=== PATIENT | male | born 1950 | race Caucasian/White ===

== ENCOUNTER 2020-02-24 14:45 | Inpatient (IN) | payer OTHER, MEDICAID, SELFPAY ==
[~2020-02-24] VITALS: Ht 167.6 cm; Wt 83.5 kg
--- NOTE | 2020-02-24 14:45 | NUR ---
PT MIHIR FARNSWORTH TO ER BED 09 Addendum: 02/24/20 at 1500 by MEDWB PT MIHIR FARNSWORTH TO ER BED 09. RN EVALUATING AT BEDSIDE.
[2020-02-24 14:50] VITALS: BP 115/74
[2020-02-24] MEDS ORDERED: ACETAMINOPHEN 650 MG SUPP RC ONE ×2 (14:55→16:15)
--- NOTE | 2020-02-24 15:00 | NUR ---
Note undone in EDM - 02/24/20 at 1610 by MEDSS1 BIBA ALS W C/O FEVER, SOB & ALOC STARTING TODAY. PER EMS, PT O2 SAT WAS 85-88% ON RA AT THE FACILITY. PER EMS, PT BASELINE IS CONFUSED AND FOLLOWS SIMPLE INSTRUCTIONS. TEMP AT THIS TIME 100.4, HR ELEVATED AT 125BPM, PT ON 15L NRB AT 95%. GCS 4/15 (2,1,1). LUNG SOUNDS DIMINISHED IN BILAT BASES. RESPIRATIONS EVEN, SHALLOW AND LABORED. PT PLACED ON BEDSIDE CARPENTRY PROFESSIONAL, BED IN LOW POSITION, SIDE RAIL UP X1
--- NOTE | 2020-02-24 15:00 | NUR ---
BIBA ALS W C/O FEVER, SOB & ALOC STARTING TODAY. PER EMS, PT O2 SAT WAS 85-88% ON RA AT THE FACILITY. PER EMS, PT BASELINE IS CONFUSED AND FOLLOWS SIMPLE INSTRUCTIONS. TEMP AT THIS TIME 100.4, HR ELEVATED AT 125BPM, PT ON 15L NRB AT 95%. GCS 4/15 (2,1,1). LUNG SOUNDS DIMINISHED IN BILAT BASES. RESPIRATIONS EVEN, SHALLOW AND LABORED. PT PLACED ON BEDSIDE APPARATUS LINEMAN, BED IN LOW POSITION, SIDE RAIL UP X2 FOR PATIENT SAFTEY
--- NOTE | 2020-02-24 15:05 | NUR ---
DR. CHU AT BEDSIDE EVALUATING PT
[2020-02-24 15:46] LABS: HEMOGLOBIN 18.2 g/dL (12.0-18.0); MEAN CORPUSCULAR HEMOGLOBIN 29 pg (27-31); MEAN CORPUSCULAR HGB CONC 32 g/dL (33-37); MEAN CORPUSCULAR VOLUME 90.3 fL (80-94); PLATELET COUNT (AUTO) 202 K/uL (140-450); RED CELL DISTRIBUTION WIDTH 14.6 % (11.6-13.7); WHITE BLOOD COUNT (AUTO) 22.2 K/uL (4.8-10.8)
[2020-02-24 16:02] LABS: ALBUMIN 3.2 g/dL (3.4-5.0); ANION GAP 21.4 (8-16); CARBON DIOXIDE 19.2 mmol/L (21-32); CREATININE 1.5 mg/dL (0.6-1.3); POTASSIUM 3.6 mmol/L (3.5-5.1); TOTAL BILIRUBIN 1.3 mg/dL (0.0-1.0)
[2020-02-24 16:05] LABS: LYMPHOCYTES % (MANUAL) 4 % (20-46); MONOCYTES % (MANUAL) 9 % (5-12)
--- NOTE | 2020-02-24 16:10 | NUR ---
Note undone in EDM - 02/24/20 at 1611 by MEDSS1 DAMIENA ALS W C/O FEVER, SOB & ALOC STARTING TODAY. PER EMS, PT O2 SAT WAS 85-88% ON RA AT THE FACILITY. PER EMS, PT BASELINE IS CONFUSED AND FOLLOWS SIMPLE INSTRUCTIONS. TEMP AT THIS TIME 100.4, HR ELEVATED AT 125BPM, PT ON 15L NRB AT 95%. GCS 4/15 (2,1,1). LUNG SOUNDS DIMINISHED IN BILAT BASES. RESPIRATIONS EVEN, SHALLOW AND LABORED. PT PLACED ON BEDSIDE WORD PROCESSOR TECHNICIAN, BED IN LOW POSITION, SIDE RAIL UP X2 FOR PATIENT SAFTEY
[2020-02-24 16:18] LABS: PROTHROMBIN TIME 10.9 secs (10.8-13.4)
[2020-02-24 16:26] LABS: C-REACTIVE PROTEIN QUANT 7.5 mg/dL (0.0-0.9)
[2020-02-24 16:32] LABS: LACTATE DEHYDROGENASE 219 U/L (85-227)
--- NOTE | 2020-02-24 16:35 | NUR ---
TROPONIN 0.120-- CRITICAL VALUE RECEIVED FROM LAB. DR CHU MADE AWARE
[2020-02-24] MEDS ORDERED: NACL 0.9% 1,000 ML IV ONE (16:40)
[2020-02-24] MEDS ORDERED: ASPIRIN 600 MG SUPP RC ONE (16:40)
[2020-02-24] MEDS ORDERED: PIPERACILLIN/TAZOBACTAM 3.375 GM in DEXTROSE 5% 50 ML IV ONE (16:40)
[2020-02-24 17:12] LABS: APPEARANCE,URINE CLEAR (CLEAR); BILIRUBIN,URINE NEGATIVE (NEGATIVE); BLOOD, URINE 1+ (NEGATIVE); COLOR,URINE YELLOW (YELLOW); LEUKOCYTE ESTERASE ,URINE NEGATIVE (NEGATIVE); NITRITE, URINE NEGATIVE (NEGATIVE); UGLUCOSE NEGATIVE (NEGATIVE)
[2020-02-24] MEDS ORDERED: PIPERACILLIN/TAZOBACTAM 3.375 GM VIAL IV ONE (17:33)
[2020-02-24 17:48] LABS: FINE GRANULAR CASTS,URINE 0-10 /LPF (None Seen)
[2020-02-24 17:49] LABS: RED BLOOD CELL CASTS,URINE 0-10 /LPF (None Seen)
[2020-02-24 17:50] LABS: URINE AMORPHOUS URATE 1+ /HPF (None Seen)
--- NOTE | 2020-02-24 18:15 | NUR ---
LACTIC ACID 3.2-- CRITICAL VALUE RECEIVED FROM LAB. DR CHU MADE AWARE
--- NOTE | 2020-02-24 18:20 | NUR ---
PT RESTING IN BED, VSS. NO NEW NEEDS AT THIS TIME
[2020-02-24] MEDS ORDERED: ACETAMINOPHEN 325 MG TAB PO PRN (18:50)
[2020-02-24] MEDS ORDERED: ALBUTEROL HFA MDI 90 MCG/ACTUATION 8 GM INH PRN ×2 (18:50→21:30)
[2020-02-24] MEDS ORDERED: DEXAMETHASONE 10 MG/ML VIAL IVP ONE (18:50)
[2020-02-24] MEDS ORDERED: ONDANSETRON 4 MG/2 ML VIAL IVP PRN (18:50)
[2020-02-24] MEDS ORDERED: BENZONATATE 100 MG CAPLF PO PRN (18:50)
[2020-02-24 19:26] LABS: RSV NEGATIVE (NEGATIVE)
[2020-02-24] MEDS ORDERED: MEMA10TA PO (19:28)
[2020-02-24] MEDS ORDERED: LEVE750T25 PO (19:28)
[2020-02-24] MEDS ORDERED: SYN.05 PO ×2 (19:28→20:12)
[2020-02-24] MEDS ORDERED: MULT-2173 PO (19:28)
[2020-02-24] MEDS ORDERED: DONE10TA10 PO (19:28)
[2020-02-24 20:01] LABS: FREE T4 (FREE THYROXINE) 1.29 ng/dL (0.76-1.46); MAGNESIUM 2.3 mg/dL (1.8-2.4); PHOSPHORUS 2.4 mg/dL (2.5-4.9); THYROID STIMULATING HORMONE 2.06 uIU/mL (0.34-3.74)
[2020-02-24] MEDS ORDERED: MEMA5TAB PO (20:12)
[2020-02-24] MEDS ORDERED: FER300L PO (20:12)
[2020-02-24] MEDS ORDERED: LEVE750T3 PO (20:12)
[2020-02-24] MEDS: DOCUSATE SODIUM 100 MG GELCAP PO SCH (21:00)
[2020-02-24] MEDS: ENOXAPARIN 100 MG/ML SYR SUBQ SCH (21:00)
[2020-02-24] MEDS: guaiFENesin 600 MG TABER PO SCH (21:00)
[2020-02-24] MEDS ORDERED: LOVENOX 1MG/KG Q12H SUBQ SCH (21:00)
[2020-02-24] MEDS ORDERED: DEXAMETHASONE 10 MG/ML VIAL ONE (21:09)
[2020-02-24] MEDS ORDERED: INSULIN LISPRO SLIDING SCALE 100 UNITS/ML VIAL SUBQ PRN (21:30)
[2020-02-24] MEDS ORDERED: DEXTROSE 50% 50 ML SYR IVP PRN (21:30)
--- NOTE | 2020-02-24 21:42 | NUR ---
PT ARRIVED FROM ER TO [facility] VIA GURNEY. RECEIVED BEDSIDE REPORT FROM ER NURSE. PT IS LETHARGIC AND NOT ANSWERING QUESTIONS. PT IS RESPONSIVE TO MILD PAIN. RESPIRATIONS ARE EVEN AND UNLABORED, ON O2 15LPM/NRM. SKIN IS WARM, DRY, AND INTACT. ABDOMEN IS SOFT AND NON-TENDER. PT HAS ESCALONA CATHETER ON. IV ACCESS NOTED ON R HAND G 24 AND RIGHT FOREARM PATENT AND INTACT. IVF INFUSING WELL AT 150CC/HR ORDERED. PT TRANSFERRED SAFELY TO BED. CHANGED TO HOSPITAL GOWN. VITAL SIGNS TAKEN. PT AFEBRILE AND HAS STABLE VS. MRSA SWAB COLLECTED. PT ORIENTED TO ROOM AND POC DISCUSSED. REINFORCEMENT NEEDED. PT KEPT COMFORTABLE. SAFETY MEASURES IN PLACE. CALL LIGHT WITHIN REACH WILL CONTINUE TO MONITOR.
--- NOTE | 2020-02-24 21:45 | NUR ---
PT ADMITTED TO THE CARE OF DR GARDINER. ADMITTED TO TELE 130. REPORT GIVEN TO APRIL PATEL
--- NOTE | 2020-02-24 22:00 | NUR ---
LOVENOX AND DECADRON ALREADY GIVEN BY ER NURSE. COLACE AND MUCINEX NOT GIVEN AND WASTED (KAMALA RN WITNESS) DUE TO PATIENT CANNOT DRINK MEDICINE DUE TO BEING LETHARGIC. WILL CONTINUE TO MONITOR.
[2020-02-24] MEDS: NACL 0.9% 1,000 ML IV SCH (22:16)
[2020-02-24 22:42] VITALS: BP 118/84
[2020-02-25] MEDS ORDERED: ALBUTEROL HFA MDI 90 MCG/ACTUATION 8 GM INH SCH
[2020-02-25] MEDS ORDERED: PIPERACILLIN/TAZOBACTAM 3.375 GM VIAL IV ONE ×2 (00:59→05:01)
[2020-02-25] MEDS: PIPERACILLIN/TAZOBACTAM 3.375 GM in DEXTROSE 5% 50 ML IV SCH ×4 (01:00→17:46)
--- NOTE | 2020-02-25 01:01 | NUR ---
VS STABLE. SCHEDULED MEDICATION GIVEN. PT ASLEEP BUT RESPONDS TO MILD PAIN. O2 IN PLACE. SAFETY MEASURES IN PLACE. WILL CONTINUE TO MONITOR.
--- NOTE | 2020-02-25 02:22 | NUR ---
PT ASLEEP. RESPIRATIONS EVEN AND UNLABORED. O2 IN PLACE. O2 SAT 93%. PT NOT IN DISTRESS. SAFETY MEASURES IN PLACE. WILL CONTINUE TO MONITOR.
[2020-02-25] MEDS: NACL 0.9% 1,000 ML IV SCH ×2 (02:23→10:27)
[2020-02-25 04:00] VITALS: BP 115/78
--- NOTE | 2020-02-25 04:11 | NUR ---
O2 SAT RANGING FROM 87-90%. RT AND MD AWARE. O2 IN PLACE. RESPIRATIONS EVEN AND UNLABORED. PT STILL LETHARGIC BUT RESPONSIVE TO MILD PAIN. SAFETY MEASURES IN PLACE. WILL CONTINUE TO MONITOR.
[2020-02-25 06:00] LABS: HEMATOCRIT 49.6 % (36-52); HEMOGLOBIN 16.1 g/dL (12.0-18.0); MEAN CORPUSCULAR HEMOGLOBIN 29 pg (27-31); MEAN CORPUSCULAR HGB CONC 32 g/dL (33-37); MEAN CORPUSCULAR VOLUME 90.8 fL (80-94); PLATELET COUNT (AUTO) 171 K/uL (140-450); RED BLOOD CELL COUNT(AUTO) 5.46 MIL/uL (4.20-6.10); RED CELL DISTRIBUTION WIDTH 14.4 % (11.6-13.7)
[2020-02-25] MEDS: BLOOD GLUCOSE MONITORING 1 DEV DEV FS SCH ×4 (06:12→21:30)
[2020-02-25 06:58] LABS: LYMPHOCYTES % (MANUAL) 10 % (20-46); MONOCYTES % (MANUAL) 6 % (5-12); WHITE BLOOD COUNT (AUTO) 27.1 K/uL (4.8-10.8)
--- NOTE | 2020-02-25 07:05 | NUR ---
PATIENT HAS BEEN SCREENED AND CATEGORIZED MODERATE NUTRITION RISK. PATIENT WILL BE SEEN WITHIN 3-5 DAYS OF ADMISSION. 02/27/20 02/29/[address]
[2020-02-25 07:08] LABS: ALBUMIN 2.6 g/dL (3.4-5.0); ANION GAP 18.9 (8-16); ASPARTATE AMINOTRANSFERASE 34 U/L (15-37); CARBON DIOXIDE 19.5 mmol/L (21-32); CHLORIDE 122 mmol/L (98-107); CHOL/HDL RATIO 3.3 (1-4.5); CREATININE 1.4 mg/dL (0.6-1.3); GFR ARICAN-AMERICAN 65 mL/min (>90); GLUCOSE 147 mg/dL (74-106); HDL CHOLESTEROL 46 mg/dL (40-60); LACTATE DEHYDROGENASE 188 U/L (85-227); LDL (CALC) 95 mg/dL (60-100); PHOSPHORUS 2.3 mg/dL (2.5-4.9); POTASSIUM 3.4 mmol/L (3.5-5.1); TOTAL BILIRUBIN 1.6 mg/dL (0.0-1.0); TRIGLYCERIDES 51 mg/dL (30-150); UREA NITROGEN, BLOOD 31 mg/dL (7-18)
--- NOTE | 2020-02-25 07:11 | NUR ---
ENDORSED TO DAY SHIFT NURSE FOR CONTINUITY OF CARE. PATIENT IN STABLE CONDITION.
--- NOTE | 2020-02-25 07:12 | NUR ---
RECEIVED REPORT FROM NIGHT NURSE. PATIENT IS IN STABLE CONDITION. PER REPORT PATIENT WAS DESATING BELOW 90%. PATIENT WAS PLACED ON O2 NON REBREATHER 15L AND NC 5L BY RT. PT NOTED AT 90-91% AT THIS TIME. PATIENT NON LABORED. PATIENT ASLEEP, ABLE TO WAKE BY TOUCH. AOX1. SKIN WARM AND DRY TO TOUCH. IV INTACT AND PATENT TO RIGHT HAND AND RIGHT FOREARM. IVF INFUSING AT 150ML/HR. ESCALONA CATHETER IN PLACE. PLANS OF CARED DISCUSSED. FALL RISK PREVENTION IN PLACE. CALL LIGHT WITHIN REACH.
--- NOTE | 2020-02-25 07:33 | NUR ---
PT NOT IN ANY DISTRESS AT THIS TIME. NO ACCESSORY MUSCLE USE. PT ON NRB SPO2 90%. AND ALSO BEDSIDE EVALUATING PT. WILL CONTINUE TO MONITOR.
[2020-02-25 08:00] VITALS: BP 147/86
[2020-02-25] MEDS: DOCUSATE SODIUM 100 MG GELCAP PO SCH ×2 (09:00→20:26)
[2020-02-25] MEDS: ASCORBIC ACID 500 MG TAB PO SCH (09:00)
[2020-02-25] MEDS: ZINC SULF 220 MG CAP PO SCH (09:00)
[2020-02-25] MEDS: guaiFENesin 600 MG TABER PO SCH ×2 (09:00→20:27)
[2020-02-25] MEDS: VITAMIN D 400 IU TAB PO SCH (09:00)
--- NOTE | 2020-02-25 09:00 | NUR ---
PATIENT UNABLE TO TOLERATE PO MEDICATION. PATIENT IS LETHARGIC. NON REBREATHER MASK IN PLACE @15L. O2 SAT 93%. WILL CONTINUE TO MONITOR.
[2020-02-25 09:19] LABS: SODIUM SERUM 157 mmol/L (136-145)
[2020-02-25] MEDS ORDERED: CRUSHER, PILL MC ONE (09:55)
[2020-02-25] MEDS: ENOXAPARIN 100 MG/ML SYR SUBQ SCH ×2 (10:19→20:28)
--- NOTE | 2020-02-25 10:37 | NUR ---
ELECTRICIAN OFFICE NOTE: Patient's Orientation Unable To Assess Information Provided By ROXIE TATE Comments SW WAS UNABLE TO MEET PATIENT AT BEDSIDE DUE TO MEDICAL CONDITION. Assembler Finger Buffs, Realtionship and Phone Number ROXIE RODRIGUEZ [phone] Healthcare Power of Transition Social Worker No Does Patient Have a POLST No Identifying Problems No Social Work Triggers Is A Social Work Consult Needed No Mandate Report Filed No Explanation Of Identifying Problems PATIENT IS A 70-YEAR-OLD MALE ADMITTED FOR SEPSIS, PNA, AND COVID R/O. PATIENT HAS PMHX OF DIABETES. Admitted From Intermediate Facility Intermediate Facility [facility] [phone] Pre-Admission Level Of Functioning Status Total Care Prior Resources/Services Used In Last 12 Months SNF Long Term Care Prior DME Wheelchair Patient Had Caregiver No Home Support No Caregiver Issues Financial Issues No Known Financial Issue Referral To The Financial Counselor Needed No Factors/Needs SNF/NH Placement Explanation And Or Other Factors Affecting/Possible DC Needs PATIENT IS PENITENTIARY AND ON A BED HOLD. Pt/Rep Participated In Discharge Plan Yes Patient/Family Agress With Discharge Plan Yes Discharge Plan Comments TENTATIVE DISCHARGE PLAN IS FOR PATIENT TO RETURN TO [facility]. DC Plan Status Initiated
[2020-02-25 12:00] VITALS: BP 123/77
--- NOTE | 2020-02-25 12:00 | NUR ---
PATIENT IS IN BED, RESPIRATIONS EVEN AND UNLABORED. NON REBREATHER MASK IN PLACE. NO DISTRESS NOTED AT THIS TIME.
[2020-02-25] MEDS: NACL 0.45% 1,000 ML IV SCH ×2 (13:58→21:05)
--- NOTE | 2020-02-25 14:00 | NUR ---
PATIENT STARTING TO BE MORE AWAKE, MUMBLING. PATIENT REFUSED LUNCH. O2 SAT 100%. NON REBREATHER MASK IN PLACE. WILL CONTINUE TO MONITOR.
[2020-02-25 16:00] VITALS: BP 124/74
--- NOTE | 2020-02-25 17:00 | NUR ---
PATIENT IS TOLERATING NON REBREATHER MASK. PATIENT AWAKE, MAKES GROANS. PATIENT ABLE TO TOLERATE JELLO. PATIENT IS COMFORTABLE WITH O2 SAT 98%
--- NOTE | 2020-02-25 18:51 | NUR ---
PATIENT STABLE. WILL ENDORSE TO NIGHT NURSE FOR CONTINUITY OF CARE.
--- NOTE | 2020-02-25 19:25 | NUR ---
RECEIVED PATIENT FOR CONTINUITY OF CARE. PATIENT IS IN STABLE CONDITION. A/O X 1, 02 15L VIA NONREBREATHER, 02 4L VIA NC, PATIENT IS SATURATING AT 99%. SKIN INTACT. RIGHT FOREARM IV 20G INTACT AND PATENT. RIGHT HAND IV 24G INTACT AND PATENT. ACTIVE BOWEL SOUNDS X 4, ESCALONA CATHETER IN PLACE. SAFETY PRECAUTIONS IN PLACE. WILL CONTINUE TO MONITOR.
[2020-02-25 20:00] VITALS: BP 126/77
[2020-02-25] MEDS ORDERED: guaiFENesin 600 MG TABER PO ONE (20:09)
--- NOTE | 2020-02-25 20:38 | NUR ---
MADE ROUND ON PATIENT. HELD PO MEDS DUE TO PATIENT NOT OPENING MOUTH, POSING SWALLOWING CONTRAINDICATION.
--- NOTE | 2020-02-25 22:00 | NUR ---
PATIENT CONTINUES IN STABLE CONDITION. CONTINUES ON 02 15L VIA NONREBREATHER WITH O2SAT 100%. CALL LIGHT WITHIN REACH. SAFETY PRECAUTIONS IN PLACE. ISOLATION PRECAUTIONS OBSERVED BY ALL STAFF.
[2020-02-26] VITALS: BP 132/90
--- NOTE | 2020-02-26 | NUR ---
MADE ROUNDS. NO S/S ACUTE DISTRESS. FLACC 0. CALL LIGHT WITHIN REACH. SAFETY PRECAUTIONS IN PLACE. ISOLATION PRECAUTIONS OBSERVED BY ALL STAFF.
--- NOTE | 2020-02-26 01:15 | NUR ---
DUE MEDS GIVEN ORDERED. PATIENT IN STABLE CONDITION. FLACC 0. NO S/S ACUTE DISTRESS. CALL LIGHT WITHIN REACH. SAFETY PRECAUTIONS IN PLACE. ISOLATION PRECAUTIONS OBSERVED BY ALL STAFF.
[2020-02-26 04:00] VITALS: BP 140/87
--- NOTE | 2020-02-26 04:30 | NUR ---
INCONTINENT CARE RENDERED WITH FIREPERSON AT BEDSIDE. FLACC 0. NO S/S ACUTE DISTRESS. CALL LIGHT WITHIN REACH. SAFETY PRECAUTIONS IN PLACE. ISOLATION PRECAUTIONS OBSERVED BY ALL STAFF.
[2020-02-26] MEDS: NACL 0.45% 1,000 ML IV SCH (05:25)
[2020-02-26] MEDS: PIPERACILLIN/TAZOBACTAM 3.375 GM in DEXTROSE 5% 50 ML IV SCH ×6 (06:06→23:36)
[2020-02-26 06:13] LABS: BASOPHILS % (AUTO) 0.1 % (0.0-2.0); HEMATOCRIT 48.6 % (36-52); HEMOGLOBIN 15.5 g/dL (12.0-18.0); LYMPHOCYTES # (AUTO) 2.5 K/uL (2.0-11.5); LYMPHOCYTES % (AUTO) 10.7 % (20.5-51.1); MEAN CORPUSCULAR HEMOGLOBIN 29 pg (27-31); MEAN CORPUSCULAR HGB CONC 32 g/dL (33-37); MEAN CORPUSCULAR VOLUME 92.1 fL (80-94); MONOCYTES % (AUTO) 4.5 % (1.7-9.3); NEUTROPHILS # (AUTO) 19.5 K/uL (1.8-7.7); NEUTROPHILS % (AUTO) 84.7 % (42.2-75.2); PLATELET COUNT (AUTO) 154 K/uL (140-450); RED BLOOD CELL COUNT(AUTO) 5.28 MIL/uL (4.20-6.10); RED CELL DISTRIBUTION WIDTH 14.7 % (11.6-13.7); WHITE BLOOD COUNT (AUTO) 23.1 K/uL (4.8-10.8)
[2020-02-26 06:18] LABS: ANION GAP 16.6 (8-16); CARBON DIOXIDE 22.9 mmol/L (21-32); CREATININE 1.4 mg/dL (0.6-1.3); POTASSIUM 3.5 mmol/L (3.5-5.1)
--- NOTE | 2020-02-26 07:26 | NUR ---
RECEIVED REPORT FROM MISSILE TRACKING TECHNICIAN RN FOR CONTINUITY OF CARE. PT IS AAOX1, UNABLE TO MAKE NEEDS KNOWN. PT ON 15L NON REBREATHER AND 4L NC SATING 98%. PT SKIN IS INTACT. PT BEDBOUND, NEEDS Q2H REPOSITIONING. PT HAS RIGHT FA 20G AND R HAND 24G. BOTH IVS PATENT AND INTACT. UNABLE TO DISCUSS POC WITH PT DUE TO MENTAL STATUS. ALL SAFETY MEASURES IN PLACE. WILL ROUND FREQUENTLY ON PT THROUGHOUT THE SHIFT.
[2020-02-26 08:00] VITALS: BP 130/76
[2020-02-26] MEDS: BLOOD GLUCOSE MONITORING 1 DEV DEV FS SCH ×4 (08:03→21:07)
[2020-02-26] MEDS: ZINC SULF 220 MG CAP PO SCH (09:00)
[2020-02-26] MEDS: guaiFENesin 600 MG TABER PO SCH ×2 (09:00→21:22)
[2020-02-26] MEDS: VITAMIN D 400 IU TAB PO SCH (09:00)
[2020-02-26] MEDS: ASCORBIC ACID 500 MG TAB PO SCH (09:00)
[2020-02-26] MEDS: DOCUSATE SODIUM 100 MG GELCAP PO SCH ×2 (09:00→21:22)
--- NOTE | 2020-02-26 09:41 | NUR ---
PT REFUSING TO TAKE MEDICATING AT THIS TIME. I ATTEMPTED A SWALLOW EVAL ON PT BUT HE REFUSED TO TAKE ANYTHING INTO HIS MOUTH. MADE AWARE. NO ORDERS RECEIVED A T THIS TIME. PT STABLE. ALL NEEDS CURRENTLY MET.
[2020-02-26] MEDS: ENOXAPARIN 100 MG/ML SYR SUBQ SCH ×2 (09:58→21:23)
--- NOTE | 2020-02-26 11:21 | NUR ---
PT ASLEEP. ALL NEEDS MET.
[2020-02-26 12:00] VITALS: BP 121/71
--- NOTE | 2020-02-26 13:42 | NUR ---
PT RESTING IN BED. ALL NEEDS MET. NO SIGNS OF DISTRESS AT THIS TIME. WILL CONTINUE TO ROUND FREQUENTLY ON PT.
[2020-02-26] MEDS: DEXTROSE 5% 1,000 ML IV SCH ×2 (13:45→23:36)
[2020-02-26] MEDS ORDERED: NACL 0.9% 500 ML IV ONE (13:45)
--- NOTE | 2020-02-26 15:14 | NUR ---
PT ASLEEP. WILL CONTINUE TO ROUND FREQUENTLY .
[2020-02-26 16:00] VITALS: BP 124/64
--- NOTE | 2020-02-26 19:25 | NUR ---
RECEIVED CONTINUITY OF CARE FROM AM NURSE. PATIENT IS IN STABLE CONDITION. A/O X 0, AROUSABLE TO SHAKING. SKIN IS WARM, DRY, INTACT. TELE MONITOR IN PLACED. 15L 02 VIA NONREBREATHER AND 4L [address] NC [address]. BOTH IV SITES ARE PATENT AND INTACT. ESCALONA CATHETER IN PLACE. ABD IS SOFT AND ROUND. SAFETY PRECAUTIONS IN PLACE. CALL LIGHT WITHIN REACH. ISOLATION PRECAUTION IN PLACE. WILL CONTINUE TO MONITOR.
--- NOTE | 2020-02-26 19:36 | NUR ---
ENDORSED TO POLE SANDER OPERATOR FOR CONTINUITY OF CARE. PT IN STABLE CONDITION AT THIS TIME.
[2020-02-26 20:00] VITALS: BP 129/65
--- NOTE | 2020-02-26 21:15 | NUR ---
MADE ROUND ON PATIENT. ADMINISTERED ROUTINE MEDICATION. PATIENT TOLERATED IT. CALL LIGHT WITHIN REACH. SAFETY PRECAUTIONS IN PLACE. WILL CONTINUE TO MONITOR.
--- NOTE | 2020-02-26 23:20 | NUR ---
CHECKED ON PATIENT. PATIENT IS ASLEEP. NO S/S OF DISTRESS NOTED. SAFETY PRECAUTION IN PLACE. CALL LIGHT WITHIN REACH. WILL CONTINUE TO MONITOR.
[2020-02-27] VITALS: BP 147/87
--- NOTE | 2020-02-27 01:25 | NUR ---
PATIENT AWAKE AND RESTING COMFORTABLY IN BED. FLACC 0. NO S/S ACUTE DISTRESS. CALL LIGHT WITHIN REACH. SAFETY PRECAUTIONS IN PLACE. ISOLATION PRECAUTIONS OBSERVED BY ALL STAFF.
--- NOTE | 2020-02-27 03:15 | NUR ---
PATIENT MORE RESPONSIVE AND WITHDRAWS WITH STIMULI. NO S/S ACUTE DISTRESS. FLACC 0. CALL LIGHT WITHIN REACH. SAFETY PRECAUTIONS IN PLACE. ISOLATION PRECAUTIONS OBSERVED BY ALL STAFF.
[2020-02-27 04:00] VITALS: BP 127/77
[2020-02-27] MEDS: PIPERACILLIN/TAZOBACTAM 3.375 GM in DEXTROSE 5% 50 ML IV SCH ×3 (05:03→17:58)
--- NOTE | 2020-02-27 05:47 | NUR ---
PATIENT ASLEEP AND RESTING COMFORTABLY. ATTEMPTED TO TITRATE OXYGEN DOWN BUT PATIENT DESATURATED FROM 100% TO 88%. PATIENT CONTINUES ON O2 15L VIA NONREBREATHER. CALL LIGHT WITHIN REACH. SAFETY PRECAUTIONS IN PLACE. ISOLATION PRECAUTIONS OBSERVED BY ALL STAFF.
[2020-02-27] MEDS: BLOOD GLUCOSE MONITORING 1 DEV DEV FS SCH ×4 (05:56→21:43)
[2020-02-27 05:57] LABS: BASOPHILS % (AUTO) 0.3 % (0.0-2.0); EOSINOPHILS # (AUTO) 0.1 K/uL (0-0.4); HEMATOCRIT 43.8 % (36-52); LYMPHOCYTES # (AUTO) 2.8 K/uL (2.0-11.5); LYMPHOCYTES % (AUTO) 18.5 % (20.5-51.1); MEAN CORPUSCULAR HEMOGLOBIN 30 pg (27-31); MEAN CORPUSCULAR HGB CONC 32 g/dL (33-37); MEAN CORPUSCULAR VOLUME 92.2 fL (80-94); MONOCYTES # (AUTO) 0.9 K/uL (0.8-1.0); MONOCYTES % (AUTO) 5.7 % (1.7-9.3); NEUTROPHILS # (AUTO) 11.3 K/uL (1.8-7.7); NEUTROPHILS % (AUTO) 74.5 % (42.2-75.2); PLATELET COUNT (AUTO) 124 K/uL (140-450); RED BLOOD CELL COUNT(AUTO) 4.76 MIL/uL (4.20-6.10); RED CELL DISTRIBUTION WIDTH 14.5 % (11.6-13.7); WHITE BLOOD COUNT (AUTO) 15.1 K/uL (4.8-10.8)
[2020-02-27 06:32] LABS: ANION GAP 11.1 (8-16); CREATININE 1.3 mg/dL (0.6-1.3); POTASSIUM 3.1 mmol/L (3.5-5.1)
--- NOTE | 2020-02-27 07:19 | NUR ---
RECEIVED REPORT FROM GAMBLING SUPERVISOR RN FOR CONTINUITY OF CARE FROM YESTERDAY DAY SHIFT. PT IN STABLE CONDITION AT THIS TIME. WILL ROUND FREQUENTLY ON PT THROUGHOUT THE SHIFT.
[2020-02-27 08:00] VITALS: BP 112/68
[2020-02-27] MEDS: DOCUSATE SODIUM 100 MG GELCAP PO SCH ×2 (09:00→21:20)
[2020-02-27] MEDS: guaiFENesin 600 MG TABER PO SCH ×2 (09:00→21:20)
[2020-02-27] MEDS: ZINC SULF 220 MG CAP PO SCH (09:00)
[2020-02-27] MEDS: ENOXAPARIN 100 MG/ML SYR SUBQ SCH ×2 (09:00→21:23)
[2020-02-27] MEDS: ASCORBIC ACID 500 MG TAB PO SCH (09:00)
[2020-02-27] MEDS: VITAMIN D 400 IU TAB PO SCH (09:00)
--- NOTE | 2020-02-27 09:28 | NUR ---
ADMINISTERED MORNING MEDS TO PT. PT TOLERATED WELL. ALL NEEDS MET. WILL CONTINUE TO ROUND FREQUENTLY ON PT.
[2020-02-27] MEDS: DEXTROSE 5% 1,000 ML IV SCH ×2 (09:45→17:58)
--- NOTE | 2020-02-27 11:40 | NUR ---
PT RESTING IN BE. ALL NEEDS MET. WILL CONTINUE TO ROUND FREQUENTLY ON PT.
[2020-02-27] MEDS ORDERED: POTASSIUM CHLORIDE 40 MEQ, LIDOCAINE MPF 1% 25 MG in NACL 0.9% 250 ML IV SCH ×2 (11:45→13:00)
[2020-02-27 12:00] VITALS: BP 114/71
--- NOTE | 2020-02-27 13:13 | NUR ---
PT RESTING IN BED. ALL NEEDS MET. WILL CONTINUE TO ROUND FREQUENTLY ON PT.
--- NOTE | 2020-02-27 15:26 | NUR ---
PT SLEEPING. ALL NEEDS MET. WILL CONTINUE TO ROUND FREQUENTLY ON PT.
[2020-02-27 16:00] VITALS: BP 107/60
--- NOTE | 2020-02-27 19:02 | NUR ---
will endorse pt to pre kindergarten teacher for continuity of care. Pt in sable condition at this time.
--- NOTE | 2020-02-27 19:03 | NUR ---
RECD. RESTING IN BED, AWAKE, A/0X1,CONFUSED, RESPIRATION EVEN AND UNLABORED. MUMBLES. ON 02 AT 2 L N/C BUT ALWAYS TAKES IT OFF, 02 SATURATION - 96%. IV OF D52 AT 100 ML/HR INFUSING RIGHT HAND G24. SAFETY MEASURES ENFORCED, SIDE RAILS WITH PADS, BED ON ALARM. REORIENTED TO HOSPITAL SETTING, PLAN OF CARE DISCUSSED. NEEDS REINFORCEMENT. NO APPEARANCE OF PAIN NOTED, FLACC - 0.
[2020-02-27 20:00] VITALS: BP 126/71
--- NOTE | 2020-02-27 21:20 | NUR ---
DUE PO MEDICATIONS CRUSHED AND GIVEN WITH APPLE SAUCE. NO SIGN AND SYMPTOMS OF ASPIRATION NOTED.
--- NOTE | 2020-02-27 21:30 | NUR ---
INFORMED RT ZANE THAT PATIENT NEED SPECIMEN FOR SPUTUM CULTURE, NEED TO INDUCE PATIENT, PATIENT IS ALREADY X2 NEGATIVE FOR COVID.
[2020-02-28] VITALS: BP 113/51
--- NOTE | 2020-02-28 | NUR ---
APPRENTICE TECHNICIAN BOBBIE NOTED HR DROPPED DOWN TO 39 BUT WENT UP AGAIN TO 40s. PATIENT IN BED, ASYMPTOMATIC.
[2020-02-28] MEDS: PIPERACILLIN/TAZOBACTAM 3.375 GM in DEXTROSE 5% 50 ML IV SCH ×4 (00:40→18:13)
[2020-02-28 04:00] VITALS: BP 133/91
--- NOTE | 2020-02-28 04:00 | NUR ---
ALWAYS TAKING OFF 02 CANNULA, 02 SAT ON ROOM AIR IS 94-96%. DECREASED 02 3 LITERS VIA N/C.
[2020-02-28] MEDS: DEXTROSE 5% 1,000 ML IV SCH ×2 (06:08→15:48)
[2020-02-28 06:17] LABS: BASOPHILS % (AUTO) 0.2 % (0.0-2.0); EOSINOPHILS # (AUTO) 0.1 K/uL (0-0.4); EOSINOPHILS % (AUTO) 0.9 % (0.0-4.0); HEMATOCRIT 40.6 % (36-52); HEMOGLOBIN 13.1 g/dL (12.0-18.0); LYMPHOCYTES # (AUTO) 2.2 K/uL (2.0-11.5); LYMPHOCYTES % (AUTO) 19.6 % (20.5-51.1); MEAN CORPUSCULAR HEMOGLOBIN 29 pg (27-31); MEAN CORPUSCULAR HGB CONC 32 g/dL (33-37); MEAN CORPUSCULAR VOLUME 90.9 fL (80-94); MONOCYTES # (AUTO) 0.7 K/uL (0.8-1.0); MONOCYTES % (AUTO) 5.9 % (1.7-9.3); NEUTROPHILS # (AUTO) 8.2 K/uL (1.8-7.7); NEUTROPHILS % (AUTO) 73.4 % (42.2-75.2); PLATELET COUNT (AUTO) 144 K/uL (140-450); RED BLOOD CELL COUNT(AUTO) 4.47 MIL/uL (4.20-6.10); WHITE BLOOD COUNT (AUTO) 11.1 K/uL (4.8-10.8)
[2020-02-28 06:39] LABS: ANION GAP 12.5 (8-16); CARBON DIOXIDE 25.8 mmol/L (21-32); POTASSIUM 3.3 mmol/L (3.5-5.1)
--- NOTE | 2020-02-28 07:00 | NUR ---
CONDITION REMAIN STABLE. WILL ENDORSE TO AM SHIFT NURSE FOR CONTINUITY OF CARE.
--- NOTE | 2020-02-28 07:05 | NUR ---
RECEIVED BEDSIDE REPORT FROM NIGHTSHIFT NURSE. PT RESTING IN BED. ABLE TO MAKE NEEDS KNOWN.RESPIRATIONS EVEN AND UNLABORED WITH NO SOB OR RESPIRATORY DISTRESS. SKIN WARM AND DRY TO TOUCH. IV SITE IN LFA 22G IS CLEAN, DRY, AND INTACT. SAFETY MEASURES IN PLACE. WILL CONTINUE TO MONITOR
[2020-02-28] MEDS: BLOOD GLUCOSE MONITORING 1 DEV DEV FS SCH ×4 (07:55→21:00)
[2020-02-28 08:00] VITALS: BP 95/44
[2020-02-28] MEDS: guaiFENesin 600 MG TABER PO SCH ×2 (09:00→21:00)
[2020-02-28] MEDS ORDERED: CRUSHER, PILL MC ONE (09:16)
[2020-02-28] MEDS: ENOXAPARIN 100 MG/ML SYR SUBQ SCH ×2 (09:19→21:00)
[2020-02-28] MEDS: VITAMIN D 400 IU TAB PO SCH (09:20)
[2020-02-28] MEDS: ASCORBIC ACID 500 MG TAB PO SCH (09:20)
[2020-02-28] MEDS: DOCUSATE SODIUM 100 MG GELCAP PO SCH (09:20)
[2020-02-28] MEDS: ZINC SULF 220 MG CAP PO SCH (09:20)
--- NOTE | 2020-02-28 09:30 | NUR ---
ADMINISTERED SCHED MED PRESCRIBED PER MD ORDER. PT TOLERATED WELL. PT APHASIC AND UNABLE TO RETURN DEMONSTRATION. SAFETY MEASURES IN PLACE. WILL CONTINUE TO MONITOR
--- NOTE | 2020-02-28 10:15 | NUR ---
STARTED WEANING PT OFF OXYGEN. PT SATURATION ON ROOM AIR IS 94%. SAFETY MEASURES IN PLACE. WILL CONTINUE TO MONITOR
--- NOTE | 2020-02-28 11:30 | NUR ---
PT BLOOD SUGAR IS 101. NO INSULIN NEEDED AT THIS TIME. SAFETY MEASURES IN PLACE. WILL CONTINUE TO MONITOR
[2020-02-28 12:00] VITALS: BP 105/64
--- NOTE | 2020-02-28 15:18 | NUR ---
ADMINISTERED SCHED IVF PRESCRIBED PER MD ORDER. PT TOLERATED WELL. PT APHASIC AND UNABLE TO RETURN DEMONSTRATION. SAFETY MEASURES IN PLACE. WILL CONTINUE TO MONITOR
[2020-02-28 16:00] VITALS: BP 103/75
--- NOTE | 2020-02-28 16:30 | NUR ---
PT BLOOD SUGAR IS 129. NO INSULIN COVERAGE NEEDED AT THIS TIME. SAFETY MEASURES IN PLACE. WILL CONTINUE TO MONITOR
--- NOTE | 2020-02-28 18:16 | NUR ---
ADMINISTERED SCHED MED PRESCRIBED PER MD ORDER. PT TOLERATED WELL. PT APHASIC AND UNABLE TO RETURN DEMONSTRATION. SAFETY MEASURES IN PLACE. WILL CONTINUE TO MONITOR
--- NOTE | 2020-02-28 19:04 | NUR ---
ENDORSED TO NIGHTSHIFT FOR CONTINUITY OF CARE. PT IS STABLE
--- NOTE | 2020-02-28 19:23 | NUR ---
RECEIVED CONTINUITY OF CARE FROM AM NURSE. PATIENT IS IN STABLE CONDITION. A/O X 0, AROUSABLE TO SHAKING. SKIN IS WARM, DRY, INTACT. TELE MONITOR IN PLACED. PATIENT SATURATING AT 95% ON ROOM AIR. ESCALONA CATHETER IN PLACE. ABD IS SOFT AND ROUND. SAFETY PRECAUTIONS IN PLACE. CALL LIGHT WITHIN REACH. WILL CONTINUE TO MONITOR.
[2020-02-28 20:00] VITALS: BP 130/77
--- NOTE | 2020-02-28 21:36 | NUR ---
ASSESS FSBS AND RECEIVED 76. NO COVERAGE NEEDED. PATIENT IS IN STABLE CONDITION. WILL CONTINUE TO MONITOR.
--- NOTE | 2020-02-28 23:45 | NUR ---
ADMINISTERED MED ORDERED. PATIENT TOLERATED WELL. SAFETY PRECAUTIONS IN PLACE. WILL CONTINUE TO MONITOR. Addendum: 02/29/20 at 0937 by Srinath Gilbert RN DOCUMENTED WRONG TIME.
[2020-02-29] VITALS: BP 113/70
[2020-02-29] MEDS: DOCUSATE SODIUM 100 MG GELCAP PO SCH ×2 (00:17→08:34)
[2020-02-29] MEDS: PIPERACILLIN/TAZOBACTAM 3.375 GM in DEXTROSE 5% 50 ML IV SCH ×2 (00:22→05:34)
--- NOTE | 2020-02-29 01:15 | NUR ---
CHECKED ON PATIENT. PATIENT IS SLEEPING IN BED. SAFETY PRECAUTIONS IN PLACE. WILL CONTINUE TO MONITOR.
[2020-02-29] MEDS: DEXTROSE 5% 1,000 ML IV SCH ×3 (01:45→19:24)
--- NOTE | 2020-02-29 03:00 | NUR ---
CHECKED ON PATIENT. PATIENT IS SLEEPING IN BED. SAFETY PRECAUTIONS IN PLACE. WILL CONTINUE TO MONITOR.
[2020-02-29 04:00] VITALS: BP 135/76
--- NOTE | 2020-02-29 05:12 | NUR ---
CHECKED ON PATIENT. PATIENT IS SLEEPING IN BED. SAFETY PRECAUTIONS IN PLACE. WILL CONTINUE TO MONITOR.
[2020-02-29 06:21] LABS: ANION GAP 13.6 (8-16); CARBON DIOXIDE 25.4 mmol/L (21-32); CREATININE 1.1 mg/dL (0.6-1.3)
--- NOTE | 2020-02-29 07:15 | NUR ---
RECEIVED REPORT AT BEDSIDE WITH NIGHTSHIFT NURSE. PT RESTING IN BED. ABLE TO MAKE NEEDS KNOWN. RESPIRATIONS EVEN AND UNLABORED WITH NO SOB OR RESPIRATORY DISTRESS. SKIN WARM AND DRY TO TOUCH. IV SITE IN RFA 20G IS CLEAN, DRY, AND INTACT. SAFETY MEASURES IN PLACE. WILL CONTINUE TO MONITOR
--- NOTE | 2020-02-29 07:25 | NUR ---
RECEIVED CONTINUITY OF CARE FROM AM NURSE. PATIENT IS IN STABLE CONDITION, A/OX4, 969% ON ROOM AIR, SKIN DRY, CLEAN, INTACT. ACTIVE BOWEL TONES THROUGH OUT. DISCUSSED PLAN OF CARE WITH PATIENT. SAFETY PRECAUTION IN PLACE. CALL LIGHT WITHIN REACH.
--- NOTE | 2020-02-29 07:28 | NUR ---
ENDORSED CARE TO AM NURSE. PATIENT IS IN STABLE CONDITION.
[2020-02-29] MEDS: BLOOD GLUCOSE MONITORING 1 DEV DEV FS SCH ×3 (07:52→16:56)
[2020-02-29 08:00] VITALS: BP 141/66
[2020-02-29] MEDS: ENOXAPARIN 100 MG/ML SYR SUBQ SCH (08:30)
[2020-02-29] MEDS: VITAMIN D 400 IU TAB PO SCH (08:33)
[2020-02-29] MEDS: ASCORBIC ACID 500 MG TAB PO SCH (08:35)
[2020-02-29] MEDS: ZINC SULF 220 MG CAP PO SCH (08:36)
--- NOTE | 2020-02-29 08:45 | NUR ---
ADMINISTERED SCHED MED PRESCRIBED PER MD ORDER. PT TOLERATED WELL. MEDICATION EDUCATION PERFORMED. PT APHASIC AND UNABLE TO RETURN DEMONSTRATION. SAFETY MEASURES IN PLACE. WILL CONTINUE TO MONITOR
[2020-02-29] MEDS ORDERED: KCL 20 MEQ/WATER INJ PREMIX 200 ML IV SCH (10:05)
--- NOTE | 2020-02-29 10:15 | NUR ---
ASSISTED INDUSTRIAL ROOFER HELPER WITH TURNING, REPOSITIONING, AND CHANGING PATIENT. PT TOLERATED WELL. SAFETY MEASURES IN PLACE. WILL CONTINUE TO MONITOR
--- NOTE | 2020-02-29 11:30 | NUR ---
PT BLOOD SUGAR IS 111. NO INSULIN COVERAGE NEEDED AT THIS TIME. SAFETY MEASURES IN PLACE. WILL CONTINUE TO MONITOR
--- NOTE | 2020-02-29 11:34 | NUR ---
02/29/20 RD INITIAL ASSESSMENT COMPLETED PLEASE REFER TO NUTRITION ASSESSMENT UNDER CARE ACTIVITY FOR ESTIMATED NUTRITIONAL NEEDS. RD RECOMMENDATIONS: 1. RECOMMEND CONTINUE 60G CCHO MECHANICAL SOFT DIET. 2. ASSIST NEEDED / [place] INCREASED PO INTAKE. 3. SUPPLEMENT DIET WITH DIET HEALTHSHAKES TID 4. F/U 3-5 DAYS; MODERATE RISK RICCARDO CARDENAS MBA, RD
[2020-02-29 12:00] VITALS: BP 101/80
--- NOTE | 2020-02-29 12:23 | NUR ---
PATIENT WILL BE DISCHARGING TODAY TO [facility] [phone]. MARNIE IN ADMISSIONS PROVIDED ROOM NUMBER [id number] FOR PATIENT TO RETURN TO. SHE ASKS THAT I SET UP TRANSPORTATION FOR AFTER 5:00 PM
--- NOTE | 2020-02-29 15:04 | NUR ---
HOURLY ROUNDING. PT RESTING IN BED. FLACC 0. RESPIRATIONS EVEN AND UNLABORED WITH NO SOB OR RESPIRATORY DISTRESS. SKIN WARM AND DRY TO TOUCH. SAFETY MEASURES IN PLACE. WILL CONTINUE TO MONITOR
--- NOTE | 2020-02-29 16:30 | NUR ---
PT BLOOD SUGAR IS 145. NO INSULIN COVERAGE NEEDED AT THIS TIME. SAFETY MEASURES IN PLACE. WILL CONTINUE TO MONITOR
--- NOTE | 2020-02-29 17:45 | NUR ---
CALLED GUY AHUJA [phone] FOR REPORT. GAVE REPORT TO MALACHI MOSER. NURSE READ BACK INFORMATION. SAFETY MEASURES IN PLACE. WILL CONTINUE TO MONITOR
[2020-02-29 17:59] VITALS: BP 123/79
[2020-02-29] MEDS ORDERED: PIPERACILLIN/TAZOBACTAM 3.375 GM in DEXTROSE 5% 50 ML IV SCH (18:00)
[2020-02-29] MEDS ORDERED: POTASSIUM CHLORIDE 10 MEQ TABER PO SCH (18:00)
--- NOTE | 2020-02-29 18:15 | NUR ---
RECEIVED CALL FROM PRIVATE SECTOR EXECUTIVE STORM AND SHE SAID PATIENT WILL BE PICKED UP AT 1930. SAFETY MEASURES IN PLACE. WILL CONTINUE TO MONITOR
--- NOTE | 2020-02-29 19:20 | NUR ---
RECEIVED CONTINUITY OF CARE FROM AM NURSE. PATIENT IS IN STABLE CONDITION, ON ROOM AIR 95%, RESPIRATION EVEN AND UNLABORED. A/0 X 0, SKIN IS WARM, DRY, AND INTACT. LEFT FOREARM IV 20G INTACT, ASYMPTOMATIC, AND PATENT, NS 100 ML/HR. PATIENT IS ABLE TO FOLLOW COMMANDS. CALL LIGHT WITHIN REACH. SAFETY PRECAUTIONS IN PLACE. WILL CONTINUE TO MONITOR.
--- NOTE | 2020-02-29 19:27 | NUR ---
ENDORSED AT BEDSIDE TO NIGHTSHIFT NURSE FOR CONTINUITY OF CARE. PT IS STABLE
--- NOTE | 2020-02-29 20:05 | NUR ---
[facility] ARRIVED TO BUSINESS ANALYST PATIENT. PATIENT IS CLEAN AND DRY. DISCHARGE INFORMATION AND PERSONAL BELONGINGS HANDED TO [facility]. PATIENT WILL BE GOING TO [facility]. REPORT HAS BEEN GIVEN BY AM NURSE. WRIST BAND, IV, AND ESCALONA REMOVED.
== END 2020-02-29 20:05 | DRG 871 ==
LOC: MED 14:45 → MMU 18:46
PROVIDERS: ADMIT Family Medicine; ATTEND Family Medicine
DX: A41.9 Sepsis, unspecified organism (principal); I21.A1 Myocardial infarction type 2; N17.0 Acute kidney failure with tubular necrosis; J96.01 Acute respiratory failure with hypoxia; J69.0 Pneumonitis due to inhalation of food and vomit; N39.0 Urinary tract infection, site not specified; G93.40 Encephalopathy, unspecified; E87.0 Hyperosmolality and hypernatremia; R65.20 Severe sepsis without septic shock; E11.9 Type 2 diabetes mellitus without complications; I10 Essential (primary) hypertension; F03.90 Unspecified dementia, unspecified severity, without behavioral disturbance, psychotic disturbance, mood disturbance, and anxiety; E03.9 Hypothyroidism, unspecified; E86.0 Dehydration; D64.9 Anemia, unspecified; E87.8 Other disorders of electrolyte and fluid balance, not elsewhere classified; Z03.818 Encounter for observation for suspected exposure to other biological agents ruled out; D63.8 Anemia in other chronic diseases classified elsewhere; E87.6 Hypokalemia; I70.0 Atherosclerosis of aorta
CPT/HCPCS: 36415; 36600; 71045; 80048; 80053; 81001; 82150; 82550; 82553; 82728; 82803; 82948; 83036; 83605; 83615; 83690; 83735; 83880; 84100; 84439; 84443; 84484; 85025; 85379; 85384; 85610; 85651; 85730; 86140; 86886; 86900; 86901; 87040; 87081; 87086; 87420; 87804; 93005; 96361; 96365; 99291; J1100; J1650; J2001; J2543; J3480; J7030; J7042; J7060; Q0092; U0003-CS